=== PATIENT | female | born 1945 | race Caucasian/White ===

== ENCOUNTER → 2017-07-17 | Outpatient (CLI) | payer MEDICARE, OTHER | END | disposition home or self-care (01) | LOC: MAMMO 07:43 | PROVIDERS: ATTEND Family Medicine | DX: Z12.31 Encounter for screening mammogram for malignant neoplasm of breast (principal) | CPT/HCPCS: 77063; G0202; 77067 ==

== ENCOUNTER 2018-09-24 08:32 | Emergency (ER) | payer MEDICARE, OTHER ==
[2018-09-24] MEDS ORDERED: HYDR-971 PO ×3 (09:45→10:10)
--- NOTE | 2018-09-24 09:45 | PHYS DOC ---
Adult General Chief Complaint Chief Complaint: FOOT INJURY PAIN [facility] HPI Patient is a 73 year old female who presents with complaining of right foot pain and injury. Patient states she dropped a large glass table on her right foot one week ago and since then has had pain and edema of her foot that does not getting better patient states the pain getting worse with bearing weight and denies focal neuro deficit and other injuries. Review of Systems Review of Systems Constitutional: Denies fever or chills [] Eyes: Denies change in visual acuity, redness, or eye pain [] HENT: Denies nasal congestion or sore throat [] Respiratory: Denies cough or shortness of breath [] Cardiovascular: No additional information not addressed in HPI [] GI: Denies abdominal pain, nausea, vomiting, bloody stools or diarrhea [] : Denies dysuria or hematuria [] Musculoskeletal: Denies back pain, reports joint pain [] Integument: Denies rash or skin lesions [] Neurologic: Denies headache, focal weakness or sensory changes [] Endocrine: Denies polyuria or polydipsia [] All other systems were reviewed and found to be within normal limits, except as documented in this note. Physical Exam Physical Exam Constitutional: Well developed, well nourished, mild distress, non-toxic appearance. [] HENT: Normocephalic, atraumatic Eyes: PERRLA, EOMI, conjunctiva normal, no discharge. [] Neck: Normal range of motion, no tenderness, supple, no stridor. [] Cardiovascular:Heart rate regular rhythm, no murmur [] Lungs & Thorax: Bilateral breath sounds clear to auscultation [ Skin: Warm, dry, no erythema, no rash. [] Back: No tenderness, no CVA tenderness. [] Extremities: Right foot with moderate edema and ecchymosis and tenderness in face metatarsal area and painful range of motion without neurovascular deficit Neurologic: Alert and oriented X 3, normal motor function, normal sensory function, no focal deficits noted. [] Psychologic: Affect normal, judgement normal, mood normal. [] EKG EKG [] Radiology/Procedures Radiology/Procedures [address] [address] IMAGING REPORT Signed PATIENT: BRAD ZHENG ACCOUNT: [id number] : 1945 LOCATION: ER AGE: 73 SEX: F EXAM STATUS: REG ER ORD. PHYSICIAN: DORON MCLEAN MD REASON: injury PROCEDURE: FOOT RIGHT 3V FOOT RIGHT 3V Clinical Indication: INJURY, PAIN Comparison: None. Findings: There is a single oblique screw fusing the subtalar joint. There is demineralization. No dorsal soft tissue swelling of the foot is appreciated. There is severe lateral angulation and proximal subluxation of the fifth toe middle and distal phalanx in relation to the proximal phalanx. Finding is age-indeterminate but may be chronic. There is acute traumatic nondisplaced fracture of the midshaft of the first metatarsal. Fracture line is mostly transverse. There is tarsal metatarsal joint space narrowing. IMPRESSION: Acute traumatic nondisplaced fracture of the mid diaphysis of the first metatarsal. Electronically signed by: Leroy Sanchez MD (09/24/2018 9:54 AM) [id number] DICTATED AND SIGNED BY: LEROY SANCHEZ MD DATE: 09/24/18 0950 CC: DORON MCLEAN MD; THOMAS ARELLANO MD ~ Course & Med Decision Making Course & Med Decision Making Pertinent Imaging studies reviewed. (See chart for details) Evaluation of patient in ER showed 73-year-old male patient with injury to right foot one week ago and moderate edema and tenderness and painful range of motion. X-ray showed fracture of first metatarsal. Short leg OCL splint was applied by [employer] with good cap refill and examination after placement of the splint. Patient has a walker at home and instructed to use her walker and follow -up with call orthopedic physician. Josue Disclaimer Josue Disclaimer This electronic medical record was generated, in whole or in part, using a voice recognition dictation system. Departure Departure: Impression: Primary Impression: Fracture of metatarsal of right foot, closed Disposition: 01 HOME, SELF-CARE (at 0 955) Condition: STABLE Referrals: THOMAS ARELLANO MD (PCP) Patient Instructions: Metatarsal Fracture, Undisplaced Additional Instructions: Follow-up with information [facility] orthopedic physician call [phone] to make an appointment Use your home walker Scripts Hydrocodone Bit/Acetaminophen (NORCO 5-325 TABLET) 1 Each Tablet 1 TAB PO PRN Q6HRS PRN for PAIN, #20 TAB 0 Refills Prov: DORON MCLEAN MD 09/24/18 DORON MCLEAN MD Sep 24, 2018 09:45
--- NOTE | 2018-09-24 09:56 | RAD ---
FOOT RIGHT 3V Clinical Indication: INJURY, PAIN Comparison: None. Findings: There is a single oblique screw fusing the subtalar joint. There is demineralization. No dorsal soft tissue swelling of the foot is appreciated. There is severe lateral angulation and proximal subluxation of the fifth toe middle and distal phalanx in relation to the proximal phalanx. Finding is age-indeterminate but may be chronic. There is acute traumatic nondisplaced fracture of the midshaft of the first metatarsal. Fracture line is mostly transverse. There is tarsal metatarsal joint space narrowing. IMPRESSION: Acute traumatic nondisplaced fracture of the mid diaphysis of the first metatarsal. Electronically signed by: Leroy Sanchez MD (09/24/2018 9:54 AM) [id number]
[2018-09-24 10:16] VITALS: BP 140/72
== END 2018-09-24 10:15 | disposition home or self-care (01) ==
LOC: ER 08:32
DX: S92.314A Nondisplaced fracture of first metatarsal bone, right foot, initial encounter for closed fracture (principal); W20.8XXA Other cause of strike by thrown, projected or falling object, initial encounter; Y93.89 Activity, other specified; Y92.89 Other specified places as the place of occurrence of the external cause; Y99.8 Other external cause status
CPT/HCPCS: 29515; 73630; 99284

== ENCOUNTER 2018-11-30 08:04 | Emergency (ER) | payer MEDICARE, OTHER ==
[~2018-11-30 08:04] MED LIST: HYDR-3165 PO
[2018-11-30] MEDS ORDERED: ONDANSETRON PF 4 MG/2 ML VIAL. IV ONE (08:45)
[2018-11-30] MEDS ORDERED: KETOROLAC 30 MG/ML VIAL. IV ONE (08:45)
[2018-11-30 08:48] VITALS: BP 122/78
[2018-11-30] MEDS ORDERED: IV NORMAL SALINE 1,000ML 1,000 ML IV ONE (09:00)
[2018-11-30 09:05] LABS: BASO % 0 % (0-3); EOS % 0 % (0-3); HEMATOCRIT 40.4 % (36.0-47.0); HEMOGLOBIN 13.4 g/dL (12.0-15.5); LYMPH # 0.6 x10^3/uL (1.0-4.8); LYMPH % 15 % (24-48); MEAN CORPUSCULAR HEMOGLOBIN 30 pg (25-35); MEAN CORPUSCULAR HGB CONC 33 g/dL (31-37); MEAN CORPUSCULAR VOLUME 89 fL (79-100); MONO # 0.4 x10^3/uL (0.0-1.1); MONO % 10 % (0-9); NEUT % 74 % (31-73); PLATELET COUNT 213 x10^3/uL (140-400); RED BLOOD COUNT 4.54 x10^6/uL (3.50-5.40); RED CELL DISTRIBUTION WIDTH 13.9 % (11.5-14.5); WHITE BLOOD COUNT 4.1 x10^3/uL (4.0-11.0)
[2018-11-30 09:11] LABS: CALCIUM 8.5 mg/dL (8.5-10.1); CREATININE 0.6 mg/dL (0.6-1.0); GFR 97.7; POTASSIUM 3.7 mmol/L (3.5-5.1)
--- NOTE | 2018-11-30 09:13 | RAD ---
CT HEAD WO CONTRAST Indication: HEADACHE/DIZZINESS X 4 DAYS Exposure: One or more of the following individualized dose reduction techniques were utilized for this examination: 1. Automated exposure control 2. Adjustment of the mA and/or kV according to patient size 3. Use of iterative reconstruction technique. Comparison: None are available. Contrast: None FINDINGS: Posterior fossa is unremarkable. No evidence of acute intracranial hemorrhage or abnormal extra-axial fluid collection. No evidence of mass effect or midline shift. Ventricles are symmetric in size and configuration. Arnold-white matter distinction is intact. Visualized orbits are unremarkable. Visualized paranasal sinuses and mastoids are clear. No acute calvarial abnormality. Impression:Negative for acute intracranial hemorrhage or mass effect. Electronically signed by: Chano Menezes MD (11/30/2018 9:09 AM) [facility]
--- NOTE | 2018-11-30 09:27 | PHYS DOC ---
Past History Past Medical History: Migraines Past Surgical History: Appendectomy, Cholecystectomy, Hysterectomy Smoking: Non-smoker Alcohol Use: None Drug Use: None Adult General Chief Complaint Chief Complaint: HEADACHE HPI HPI Patient is a 73 year old female with history of migraine headache who presents with complaining of migraine headache. Patient complaining of frontal headache as a sharp and throbbing pain for the last 5 days associated with nausea and photophobia that did not get better with Imitrex 6. Patient denies fever, focal neuro deficit, vomiting, chest pain, shortness of breath. Patient states the pain is like her usual migraine headache but did not get better with Imitrex. Patient states she had nasal congestion and bloody drainage from her nose with green mucus this morning. Review of Systems Review of Systems Constitutional: Denies fever or chills [] Eyes: Denies change in visual acuity, redness, or eye pain [] HENT: Denies nasal congestion or sore throat [] Respiratory: Denies cough or shortness of breath [] Cardiovascular: No additional information not addressed in HPI [] GI: Denies abdominal pain, vomiting, bloody stools or diarrhea, reports nausea [ ] : Denies dysuria or hematuria [] Musculoskeletal: Denies back pain or joint pain [] Integument: Denies rash or skin lesions [] Neurologic: Reports headache, denies focal weakness or sensory changes [] Endocrine: Denies polyuria or polydipsia [] All other systems were reviewed and found to be within normal limits, except as documented in this note. Current Medications Current Medications Current Medications Medications (Trade) Dose Ordered Sig/Kristina Start Time Stop Time Status Last Admin Dose Admin Ketorolac Tromethamine (Toradol 30mg Vial) 30 mg 1X ONCE 11/30/18 08:45 11/30/18 09:10 DC 11/30/18 09:07 30 MG Ondansetron HCl (Zofran) 4 mg 1X ONCE 11/30/18 08:45 11/30/18 09:10 DC 11/30/18 09:07 4 MG Sodium Chloride 1,000 ml @ 1,000 mls/hr 1X ONCE 11/30/18 09:00 11/30/18 09:59 11/30/18 09:00 1,000 MLS/HR Allergies Allergies Allergies Coded Allergies Type Severity Reaction Last Updated Verified No Known Drug Allergies 11/30/18 No Physical Exam Physical Exam Constitutional: Well developed, well nourished, mild distress, non-toxic appearance. [] HENT: Normocephalic, atraumatic, bilateral external ears normal, oropharynx moist, no oral exudates, nasal congestion. [] Eyes: PERRLA, EOMI, conjunctiva normal, no discharge. [] Neck: Normal range of motion, no tenderness, supple, no stridor. [] Cardiovascular:Heart rate regular rhythm, no murmur [] Lungs & Thorax: Bilateral breath sounds clear to auscultation [] Abdomen: Bowel sounds normal, soft, no tenderness, no masses, no pulsatile masses. [] Skin: Warm, dry, no erythema, no rash. [] Back: No tenderness, no CVA tenderness. [] Extremities: No tenderness, no cyanosis, no clubbing, ROM intact, no edema. [] Neurologic: Alert and oriented X 3, normal motor function, normal sensory function, no focal deficits noted. [] Psychologic: Affect normal, judgement normal, mood normal. [] Current Patient Data Vital Signs Vital Signs Date Time Temp Pulse Resp B/P (MAP) Pulse Ox O2 Delivery O2 Flow Rate FiO2 11/30/18 08:48 98.6 90 18 95 Room Air Lab Results Laboratory Tests Test 11/30/18 08:39 White Blood Count 4.1 x10^3/uL (4.0-11.0) Red Blood Count 4.54 x10^6/uL (3.50-5.40) Hemoglobin 13.4 g/dL (12.0-15.5) Hematocrit 40.4 % (36.0-47.0) Mean Corpuscular Volume 89 fL (79-100) Mean Corpuscular Hemoglobin 30 pg (25-35) Mean Corpuscular Hemoglobin Concent 33 g/dL (31-37) Red Cell Distribution Width 13.9 % (11.5-14.5) Platelet Count 213 x10^3/uL (140-400) Neutrophils (%) (Auto) 74 % (31-73) H Lymphocytes (%) (Auto) 15 % (24-48) L Monocytes (%) (Auto) 10 % (0-9) H Eosinophils (%) (Auto) 0 % (0-3) Basophils (%) (Auto) 0 % (0-3) Neutrophils # (Auto) 3.0 x10^3uL (1.8-7.7) Lymphocytes # (Auto) 0.6 x10^3/uL (1.0-4.8) L Monocytes # (Auto) 0.4 x10^3/uL (0.0-1.1) Eosinophils # (Auto) 0.0 x10^3/uL (0.0-0.7) Basophils # (Auto) 0.0 x10^3/uL (0.0-0.2) Prothrombin Time 9.8 SEC (9.4-11.4) Prothrombin Time INR 1.0 (0.9-1.1) Sodium Level 142 mmol/L (136-145) Potassium Level 3.7 mmol/L (3.5-5.1) Chloride Level 104 mmol/L (98-107) Carbon Dioxide Level 28 mmol/L (21-32) Anion Gap 10 (6-14) Blood Urea Nitrogen 13 mg/dL (7-20) Creatinine 0.6 mg/dL (0.6-1.0) Estimated GFR (Cockcroft-Gault) 97.7 Glucose Level 112 mg/dL (70-99) H Calcium Level 8.5 mg/dL (8.5-10.1) EKG EKG [] Radiology/Procedures Radiology/[place] [address] IMAGING REPORT Signed PATIENT: BRAD ZHENG ACCOUNT: [id number] : 1945 LOCATION: ER AGE: 73 SEX: F EXAM STATUS: REG ER ORD. PHYSICIAN: DORON MCLEAN MD REASON: headache PROCEDURE: CT HEAD WO CONTRAST CT HEAD WO CONTRAST Indication: HEADACHE/DIZZINESS X 4 DAYS Exposure: One or more of the following individualized dose reduction techniques were utilized for this examination: 1. Automated exposure control 2. Adjustment of the mA and/or kV according to patient size 3. Use of iterative reconstruction technique. Comparison: None are available. Contrast: None FINDINGS: Posterior fossa is unremarkable. No evidence of acute intracranial hemorrhage or abnormal extra-axial fluid collection. No evidence of mass effect or midline shift. Ventricles are symmetric in size and configuration. Arnold-white matter distinction is intact. Visualized orbits are unremarkable. Visualized paranasal sinuses and mastoids are clear. No acute calvarial abnormality. Impression:Negative for acute intracranial hemorrhage or mass effect. Electronically signed by: Chano Menezes MD (11/30/2018 9:09 AM) [facility] DICTATED AND SIGNED BY: CHANO MENEZES MD DATE: 11/30/18 0904 CC: DORON MCLEAN MD; THOMAS ARELLANO MD ~ Course & Med Decision Making Course & Med Decision Making Pertinent Labs and Imaging studies reviewed. (See chart for details) Evaluation of patient in ER showed 73-year-old female patient with history of migraine headaches presents With complaining of multiple and headache for several days that did not get better with Imitrex like her usual episode of migraine headache. Patient had unremarkable physical exam and labs and CT of head. Patient felt better after treatment with fentanyl. Plan discharge patient home with diagnosis of migraine headache and prescription of Fiorinal. Dragon Disclaimer Dragon Disclaimer This electronic medical record was generated, in whole or in part, using a voice recognition dictation system. Departure Departure: Impression: Primary Impression: Migraine headache Additional Impressions: Nausea Photophobia Asymptomatic microscopic hematuria Disposition: HOME, SELF-CARE (at 1119) Condition: IMPROVED Referrals: THOMAS ARELLANO MD (PCP) Patient Instructions: Migraine Headache Additional Instructions: Drink plenty of liquids Follow-up with your primary care physician in 3-5 days Return to ER if not getting better Scripts Butalbital/Aspirin/Caffeine (FIORINAL 50-325-40 MG CAPSULE) 1 Each Capsule 1 EACH PO QID PRN for HEADACHE, #20 CAP Prov: DORON MCLEAN MD 11/30/18 Ondansetron Hcl (ZOFRAN) 4 Mg Tablet 1 TAB PO Q6HRS for nausea and vomiting, #12 TAB Prov: DORON MCLEAN MD 11/30/18 Problem Qualifiers DORON MCLEAN MD Nov 30, 2018 09:27
[2018-11-30 11:12] LABS: BILIRUBIN,URINE NEG (NEG); CLARITY,URINE TURBID; COLOR,URINE YELLOW; GLUCOSE,URINE NEG (NEG); NITRITE,URINE POS (NEG); UROBILINOGEN,URINE 0.2 mg/dL (0.2 mg/dL)
[2018-11-30 11:13] LABS: AMORPHOUS SEDIMENT,UR PRESENT /HPF; BACTERIA,URINE MOD /HPF (0-FEW); SQUAMOUS EPITHELIAL CELL,UR OCC /LPF
[2018-11-30] MEDS ORDERED: ONDA4TAB7 PO (11:22)
[2018-11-30] MEDS ORDERED: BUTA1CAP31 PO (11:22)
== END 2018-11-30 11:00 | disposition home or self-care (01) ==
LOC: ER 08:04
DX: G43.909 Migraine, unspecified, not intractable, without status migrainosus (principal); R31.21 Asymptomatic microscopic hematuria; R42 Dizziness and giddiness
CPT/HCPCS: 36415; 70450; 80048; 81001; 85025; 85610; 87086; 96361; 96374; 96375; 99284; J1885; J2405; J3010; 87186; J7030

== ENCOUNTER → 2020-09-02 | Outpatient (CLI) | payer MEDICARE, OTHER ==
[~2020-09-02] MED LIST changes: +BUTA1CAP31 PO; +IOHEXOL 240 MG/ML 50ML VIAL. ONE; +IOHEXOL 300 MG/ML 75 ML VIAL. IV ONE; +ONDA4TAB7 PO
--- NOTE | 2020-09-02 10:29 | RAD ---
CT ABDOMEN W/CONTRAST History: Reason: HERNIA / Spl. Instructions: DRINKING AT 850-920 / History: Technique: After the administration of intravenous contrast, CT imaging was performed of the abdomen and pelvis. Multiplanar images are reviewed. Exposure: One or more of the following individualized dose reduction techniques were utilized for this examination: 1. Automated exposure control 2. Adjustment of the mA and/or kV according to patient size 3. Use of iterative reconstruction technique. Comparison: May 04, 2015 Findings: Lower chest: Partially imaged right breast implant. No consolidation or pleural effusion. Linear right middle lobe atelectasis. Abdomen and pelvis: The liver, spleen, adrenal glands, pancreas and gallbladder are unremarkable. No biliary ductal dilatation. Patent portal veins. Tiny right posterior renal hypodensity, likely cyst although too small to further characterize, unchanged. No hydronephrosis. No pathologic lymphadenopathy. Imaged bowel is nonobstructed. Oral contrast opacifies to the colon. Mild atheromatous plaque within the nonaneurysmal abdominal aorta. Mild plaque within the left renal artery origin. Small fat-containing umbilical hernia measures 1.2 x 0.9 cm with fascial defect measuring 0.5 cm, similar compared to 2015. Bones: Chronic L1 compression fracture status post kyphoplasty. Impression: 1. Small fat-containing umbilical hernia, unchanged. Electronically signed by: Robert Bonilla DO (09/02/2020 10:26 AM) [id number]
== END ==
LOC: CT 08:37
PROVIDERS: ATTEND Surgery
DX: K43.9 Ventral hernia without obstruction or gangrene (principal); J98.11 Atelectasis; I71.4 Abdominal aortic aneurysm, without rupture; I70.1 Atherosclerosis of renal artery; K42.9 Umbilical hernia without obstruction or gangrene
CPT/HCPCS: 74160; Q9967

== ENCOUNTER 2022-01-10 12:13 | Emergency (ER) | payer MEDICARE, OTHER ==
[~2022-01-10] VITALS: Ht 165.1 cm; Wt 56.8 kg
[~2022-01-10 12:13] MED LIST changes: -IOHEXOL 240 MG/ML 50ML VIAL. ONE; -IOHEXOL 300 MG/ML 75 ML VIAL. IV ONE
[2022-01-10] MEDS ORDERED: DIPHTH,PERTUSS(ACELL),TET TOX 0.5 ML DISP.SYRIN. VAX IM ONE (13:45)
[2022-01-10] MEDS ORDERED: traMADol 50 MG TABLET PO ONE (13:45)
--- NOTE | 2022-01-10 14:12 | RAD ---
EXAM: Left wrist, 3 views; left hand, 3 views; right knee, 4 views. HISTORY: Pain. Fall. COMPARISON: None. FINDINGS: Left hand and wrist: 3 views of the left hand and wrist are obtained. There is a chronic healed fract ure deformity of the distal radial metaphysis with dorsal inclination of the distal radial articular surface. There is a chronic nonunited left ulnar styloid fracture. There is mild first carpometacarpa l joint spurring. There is bone demineralization. There may be a chronic triquetral fracture. There i s an acute appearing fracture at the base of the fifth proximal phalanx. Right knee: 4 views of the right knee are obtained and 2 views of the left knee are obtained. There i s moderate lateral compartment joint space narrowing and spurring. There is mild medial and patellofe moral compartment spurring. There is medial and lateral compartment chondrocalcinosis. There is no si gnificant joint effusion. There is a left knee arthroplasty and internal fixation of the left femur, partially included on the [id number]. IMPRESSION: 1. Acute appearing fracture at the base of the left fifth proximal phalanx. 2. Chronic healed distal left radial metaphyseal fracture and chronic nonunited left ulnar styloid fr acture. 3. Moderate lateral compartment predominant osteoarthritis of the right knee. 4. Left knee arthroplasty and internal fixation of the left femur. 5. Mild left first carpometacarpal joint osteoarthritis. 6. Bone demineralization. Electronically signed by: Sonal Cook MD (01/10/2022 2:09 PM) [id number]
--- NOTE | 2022-01-10 14:16 | RAD ---
EXAM: Head CT without contrast; maxillofacial bone CT without contrast; cervical spine CT without con trast. HISTORY: Fall. Loss of consciousness. Headache. TECHNIQUE: Computed tomographic images of the head, maxillofacial bones and cervical spine were obtai daria without contrast. *One or more of the following individualized dose reduction techniques were utilized for this examina tion: 1. Automated exposure control. 2. Adjustment of the mA and/or kV according to patient size. 3. Use of iterative reconstruction technique. COMPARISON: 11/30/2018. FINDINGS: Head: There is no acute hemorrhage. There is no mass effect or midline shift. There is no hydrocephal us. There is mild decreased attenuation within the cerebral white matter, likely due to chronic small vessel disease. There is mild cerebral volume loss. There is an inferior left frontal scalp and angelina orbital soft tissue hematoma. There is evidence of lens surgery. The mastoid air cells are clear. The re is no calvarial fracture. The paranasal sinuses are clear. There is leftward nasal septal deviatio n. Cervical spine: There is no significant listhesis. There is multilevel endplate remodeling and anteri or osteophytosis. There is disc space calcification. There is calcified pannus surrounding the dens. There is multilevel facet arthropathy. There is no acute fracture. There is no suspicious osseous les ion. There is a benign osseous excrescence along the left aspect of the skull base along the anterior foramen magnum, possibly due to an ossified meningioma of no clinical significance. The combination of degenerative changes results in mild right and moderate left foraminal stenosis at C2-C3, mild bilateral foraminal stenosis at C3-C4, and moderate bilateral foraminal stenosis at C4-C 5. There is a heterogeneous thyroid containing a small left thyroid cyst. There is biapical pleural p arenchymal scarring. IMPRESSION: 1. No acute intracranial finding. 2. Small inferior left frontal scalp and left periorbital soft tissue hematoma. 3. Bilateral cerebral white matter changes, likely due to chronic small vessel disease. 4. Multilevel degenerative change involving the cervical spine, resulting in stenosis at the aforemen tioned levels. Electronically signed by: Sonal Cook MD (01/10/2022 2:13 PM) [id number]
--- NOTE | 2022-01-10 14:31 | PHYS DOC ---
Past History Past Medical History: Migraines Additional Past Medical Histor: bowel blockage (PENNY HERNANDEZ APRN) Past Surgical History: Hysterectomy, Other Additional Past Surgical Histo: L knee, bilat wrist, bowel surgery (PENNY HERNANDEZ APRN) Smoking: Non-smoker Alcohol Use: Occasionally Drug Use: None (PENNY HERNANDEZ APRN) General Adult EDM: Chief Complaint: MECHANICAL FALL HPI: HPI: Patient is a 76-year-old female that presents today after a fall. Patient state s that she was walking on the sidewalk and did not notice that the sidewalk was uneven and she tripped and fell forward hitting her face her left hand and her bilateral knees on the concrete. Patient is complaining of facial pain, left fifth finger hand pain, bilateral knee pain. Patient states that she is not sure if she had a loss of consciousness at all because she cannot remember the entire event but her says that she was awake the entire time who witnessed the fall. Patient is unsure when her last tetanus shot was. (PENNY HERNANDEZ APRN) Review of Systems: Review of Systems: Constitutional: Denies fever or chills Eyes: Denies change in visual acuity HENT: Facial, head and neck pain Respiratory: Denies cough or shortness of breath Cardiovascular: Denies chest pain or edema GI: Denies abdominal pain, nausea, vomiting, bloody stools or diarrhea : Denies dysuria Musculoskeletal: Left hand pain, bilateral knee pain denies back pain or joint pain Integument: Denies rash Neurologic: Denies headache, focal weakness or sensory changes Endocrine: Denies polyuria or polydipsia Lymphatic: Denies swollen glands Psychiatric: Denies depression or anxiety (PENNY HERNANDEZ APRN) Current Medications: Current Meds: Current Medications Medications (Trade) Dose Ordered Sig/Kristina Start Time Stop Time Status Last Admin Dose Admin Diphtheria/ Tetanus/Acell Pertussis (Boostrix) 0.5 ml ONCE ONCE 01/10/22 13:45 01/10/22 13:46 DC Tramadol HCl (Ultram) 50 mg 1X ONCE 01/10/22 13:45 01/10/22 13:46 DC (PENNY HERNANDEZ APRN) Allergies: Allergies: Allergies Coded Allergies Type Severity Reaction Last Updated Verified No Known Drug Allergies 11/30/18 No (PENNY HERNANDEZ ASSEMBLER ENGINE) Physical Exam: PE: Constitutional: Well developed, well nourished, no acute distress, non-toxic appearance. [] HENT: Inspection and palpation of the head and face reveals contusions and abrasions to the forehead area the nasal area and the lower lip mostly on the left side, patient does not have any crepitus or step-offs noted with palpation, no malocclusion noted with her teeth no loose teeth or any foreign objects in her mouth, Eyes: PERRLA, EOMI, conjunctiva normal, no discharge. [] Neck: Normal range of motion, tenderness, supple, no stridor. [] Cardiovascular:Heart rate regular rhythm, no murmur [] Lungs & Thorax: Bilateral breath sounds clear to auscultation [] Abdomen: Bowel sounds normal, soft, no tenderness, no masses, no pulsatile masses. [] Skin: Abrasion noted on the lower lip area mostly on the left side, no active bleeding noted, abrasions bilateral knees, avulsion type injury to the left hand fifth metacarpal area warm Back: No tenderness, no CVA tenderness. [] Extremities: Bilateral knee abrasions noted well-healed scar on the left knee due to a total knee replacement, swelling noted in the right knee where she hit and where the abrasion is noted, patient has good range of motion, pedal pulses are 2+ bilateral laterally, sensory intact distal to the injuries, left hand avulsion noted on the lateral aspect near the fifth metacarpal on the left hand, no active bleeding noted, patient is unable to straighten out the fifth finger but is able to bend it, she does have point tenderness in the metacarpal area, radial pulse is 2+ sensory is intact distal to the injury cap refills less than 2 seconds distal to the injury. Neurologic: Alert and oriented X 3, normal motor function, normal sensory function, no focal deficits noted. [] Psychologic: Affect normal, judgement normal, mood normal. [] (PENNY HERNANDEZ ASSEMBLER ENGINE) Current Patient Data: Vital Signs: Vital Signs Date Time Temp Pulse Resp B/P (MAP) Pulse Ox O2 Delivery O2 Flow Rate FiO2 01/10/22 14:36 75 16 152/88 (109) 97 Room Air 01/10/22 13:33 80 16 130/67 (88) 99 Room Air 01/10/22 12:39 98.2 82 16 137/87 (104) 98 Room Air Vital Signs Date Time Temp Pulse Resp B/P (MAP) Pulse Ox O2 Delivery O2 Flow Rate FiO2 01/10/22 12:39 98.2 82 16 137/87 (104) 98 Room Air (PENNY HERNANDEZ APRN) EKG: EKG: [] (PENNY HERNANDEZ APRN) Radiology/Procedures: Radiology/Procedures: REASON: fall and left hand and wrist pain PROCEDURE: WRIST 3V LEFT EXAM: Left wrist, 3 views; left hand, 3 views; right knee, 4 views. HISTORY: Pain. Fall. COMPARISON: None. FINDINGS: Left hand and wrist: 3 views of the left hand and wrist are obtained. There is a chronic healed fracture deformity of the distal radial metaphysis with dorsal inclination of the distal radial articular surface. There is a chronic nonunited left ulnar styloid fracture. There is mild first carpometacarpal joint spurring. There is bone demineralization. There may be a chronic triquetral fracture. There is an acute appearing fracture at the base of the fifth proximal phalanx. Right knee: 4 views of the right knee are obtained and 2 views of the left knee are obtained. There is moderate lateral compartment joint space narrowing and spurring. There is mild medial and patellofemoral compartment spurring. There is medial and lateral compartment chondrocalcinosis. There is no significant joint effusion. There is a left knee arthroplasty and internal fixation of the left femur, partially included on the [id number]. IMPRESSION: 1. Acute appearing fracture at the base of the left fifth proximal phalanx. 2. Chronic healed distal left radial metaphyseal fracture and chronic nonunited left ulnar styloid fracture. 3. Moderate lateral compartment predominant osteoarthritis of the right knee. 4. Left knee arthroplasty and internal fixation of the left femur. 5. Mild left first carpometacarpal joint osteoarthritis. 6. Bone demineralization. Electronically signed by: Sonal Cook MD (01/10/2022 2:09 PM) [id number][] REASON: fall and hit head, possible LOC PROCEDURE: CT MAXILLOFACIAL WO CONTRAST EXAM: Head CT without contrast; maxillofacial bone CT without contrast; cervical spine CT without contrast. HISTORY: Fall. Loss of consciousness. Headache. TECHNIQUE: Computed tomographic images of the head, maxillofacial bones and cervical spine were obtained without contrast. *One or more of the following individualized dose reduction techniques were utilized for this examination: 1. Automated exposure control. 2. Adjustment of the mA and/or kV according to patient size. 3. Use of iterative reconstruction technique. COMPARISON: 11/30/2018. FINDINGS: Head: There is no acute hemorrhage. There is no mass effect or midline shift. There is no hydrocephalus. There is mild decreased attenuation within the cerebral white matter, likely due to chronic small vessel disease. There is mild cerebral volume loss. There is an inferior left frontal scalp and periorbital soft tissue hematoma. There is evidence of lens surgery. The mastoid air cells are clear. There is no calvarial fracture. The paranasal sinuses are clear. There is leftward nasal septal deviation. Cervical spine: There is no significant listhesis. There is multilevel endplate remodeling and anterior osteophytosis. There is disc space calcification. There is calcified pannus surrounding the dens. There is multilevel facet arthropathy. There is no acute fracture. There is no suspicious osseous lesion. There is a benign osseous excrescence along the left aspect of the skull base along the anterior foramen magnum, possibly due to an ossified meningioma of no clinical significance. The combination of degenerative changes results in mild right and moderate left foraminal stenosis at C2-C3, mild bilateral foraminal stenosis at C3-C4, and moderate bilateral foraminal stenosis at C4-C5. There is a heterogeneous thyroid containing a small left thyroid cyst. There is biapical pleural parenchymal scarring. IMPRESSION: 1. No acute intracranial finding. 2. Small inferior left frontal scalp and left periorbital soft tissue hematoma. 3. Bilateral cerebral white matter changes, likely due to chronic small vessel disease. 4. Multilevel degenerative change involving the cervical spine, resulting in stenosis at the aforementioned levels. Electronically signed by: Sonal Cook MD (01/10/2022 2:13 PM) [id number] (PENNY HERNANDEZ APRN) Heart Score: C/O Chest Pain: N/A Risk Factors: Risk Factors: DM, Current or recent (<one month) smoker, HTN, HLP, family history of CAD, obesity. Risk Scores: Score 0 - 3: 2.5% MACE over next 6 weeks - Discharge Home Score 4 - 6: 20.3% MACE over next 6 weeks - Admit for Clinical Observation Score 7 - 10: 72.7% MACE over next 6 weeks - Early Invasive Strategies (PENNY HERNANDEZ APRN) Course & Med Decision Making: Course & Med Decision Making Pertinent Labs and Imaging studies reviewed. (See chart for details) 1440 reviewed radiological results with patient informing her that she has 5th finger fracture on the left hand, but all her other areas of concern were negative for any acute fracture. Patient will be placed in a foam aluminum's splint securing the fifth finger, she will refer to the [facility] orthopedic group for which she is already seeing for her foot and ankle issues for further management of her fifth finger fracture. Patient will also be given a prescription for Ultram for pain, patient will be given some wound care instructions to manage the abrasions on her body. Patient verbalized understanding of all the discharge instruction and is agreeable to the plan of care. (PENNY HERNANDEZ APRN) Dragon Disclaimer: Dragon Disclaimer: This electronic medical record was generated, in whole or in part, using a voice recognition dictation system. (PENNY HERNANDEZ APRN) Attending Co-Sign The patient was seen and interviewed as well as examined at the bedside. The chart was reviewed. The case was discussed. Agree with the plan of care. (THUAN BERNABE DO) Departure Departure: Impression: Primary Impression: Fall Qualified Codes: W19.XXXA - Unspecified fall, initial encounter Additional Impressions: Finger fracture, left Qualified Codes: S62.647A - Nondisplaced fracture of proximal phalanx of left little finger, initial encounter for closed fracture Abrasions and calluses on knuckles due to self-induced vomiting Facial contusion Qualified Codes: S00.83XA - Contusion of other part of head, initial encounter Disposition: 01 HOME / SELF CARE / HOMELESS Condition: STABLE Referrals: THOMAS ARELLANO MD (PCP) Patient Instructions: Abrasion, [id number], Facial or Scalp Contusion, Finger Fracture Additional Instructions: Foam aluminum splint for the fifth finger fracture on your left hand Follow-up with your orthopedic doctor at the [facility] for further management of that finger fracture Ultram take 1 to 2 tablets every 6 hours as needed for pain, use with caution may cause drowsiness and constipation [id number] Tylenol and/or ibuprofen as needed for pain as well Return to the emergency department for any signs and symptoms of infection of your abrasions, any increased pain in your hand, any change in mental status. Scripts Tramadol Hcl (TRAMADOL HCL) 50 Mg Tablet 50 MG PO PRN Q6HRS PRN for PAIN, #30 TAB Prov: PENNY HENRANDEZ APRN 01/10/22 PENNY HERNANDEZ APRN Jan 10, 2022 14:31 THUAN BERNABE DO Jan 12, 2022 08:24
[2022-01-10 14:36] VITALS: BP 152/88
[2022-01-10] MEDS ORDERED: TRAM50TA PO (15:03)
[2022-01-10] MEDS ORDERED: BACITRACIN ZINC TOPICAL OINT PACKET. TP ONE (15:15)
== END 2022-01-10 15:39 | disposition home or self-care (01) ==
LOC: ER 12:13
DX: S62.617A Displaced fracture of proximal phalanx of left little finger, initial encounter for closed fracture (principal); S00.83XA Contusion of other part of head, initial encounter; S00.511A Abrasion of lip, initial encounter; S80.212A Abrasion, left knee, initial encounter; S80.211A Abrasion, right knee, initial encounter; G43.909 Migraine, unspecified, not intractable, without status migrainosus; W01.0XXA Fall on same level from slipping, tripping and stumbling without subsequent striking against object, initial encounter; Y93.01 Activity, walking, marching and hiking; Y92.89 Other specified places as the place of occurrence of the external cause; Y99.8 Other external cause status
CPT/HCPCS: 29130; 70450; 70486; 72125; 73110; 73130; 90471; 90715; 99284; 73562-50

== ENCOUNTER 2022-03-19 08:58 | Emergency (ER) | payer MEDICARE, OTHER ==
[~2022-03-19] VITALS: Ht 165.1 cm; Wt 56.8 kg
[~2022-03-19 08:58] MED LIST changes: +TRAM50TA PO
--- NOTE | 2022-03-19 09:28 | PHYS DOC ---
Past History Past Medical History: Migraines Additional Past Medical Histor: bowel blockage Past Surgical History: Hysterectomy, Other Additional Past Surgical Histo: L knee, bilat wrist, bowel surgery Smoking: Non-smoker Alcohol Use: Occasionally Drug Use: None General Adult EDM: Chief Complaint: LOWER EXT PAIN HPI: HPI: Patient is a 77-year-old female who complains of left hip and lower back pain. Patient states that she fell yesterday in the kitchen. Lost her balance. Not hit her head, did not have syncopal episode. She is not been able to bear weight secondary to left hip pain since the fall. It sounds like she has had left hip replacement already performed. Additionally patient has lower back pain. She has had compression fractures previously with kyphoplasty performed. She has not had any weakness or numbness distally nor she had any incontinence. No neck pain, chest pain, shortness of breath abdominal pain or upper extremity pain. Review of Systems: Review of Systems: Constitutional: Denies fever Eyes: Denies change in visual acuity or eye pain HENT: Denies sore throat Respiratory: Denies shortness of breath Cardiovascular: Denies chest pain GI: Denies abd pain : Denies dysuria Musculoskeletal: Reports back pain, lower. Left hip pain. Integument: Denies rash or skin lesions Neurologic: Denies headache, focal weakness or sensory changes All other systems were reviewed and found to be within normal limits, except as documented in this note. Allergies: Allergies: Allergies Coded Allergies Type Severity Reaction Last Updated Verified No Known Drug Allergies 11/30/18 No Physical Exam: PE: Constitutional: Well developed, well nourished, no acute distress, non-toxic appearance. HENT: Normocephalic, atraumatic, bilateral external ears normal, mucosa moist, nose normal. Eyes: EOMI, conjunctiva normal, no discharge. Neck: Normal range of motion, supple, no stridor, no meningeal signs. Cardiovascular: Regular rate and rhythm Lungs & Thorax: Bilateral breath sounds clear to auscultation Abdomen: Soft, no tenderness or obvious masses Skin: Warm, dry, no erythema, no rash. Extremities: Patient is unable to move at the left hip secondary to pain. She has unable to sit upright in the bed. Tenderness on palpation of the upper lumbar spine in the midline. No palpable deformity. Neurologic: Alert and oriented, normal motor function, normal sensory function, no focal deficits noted. Psychologic: Affect normal, judgement normal, mood normal. Current Patient Data: Vital Signs: Vital Signs Date Time Temp Pulse Resp B/P (MAP) Pulse Ox O2 Delivery O2 Flow Rate FiO2 03/19/22 09:20 98.0 136 16 127/86 (100) 95 Room Air EKG: EKG: [] Radiology/Procedures: Radiology/Procedures: [] Impressions: PATIENT: BRAD ZHENG ACCOUNT: [id number] : 1945 LOCATION: ER AGE: 77 SEX: F EXAM STATUS: REG ER ORD. PHYSICIAN: ABDON DICKERSON MD REASON: pain PROCEDURE: CHEST AP ONLY EXAMINATION: Chest radiograph. VIEWS: Single AP view of the chest COMPARISON: None available INDICATION:77 years, Female, pain. FINDINGS: Normal cardiomediastinal silhouette. No focal consolidation. No pleural effusion or pneumothorax. No acute osseous process. IMPRESSION: No acute cardiopulmonary process. Electronically signed by: Lacho Sierra DO (03/19/2022 10:06 AM) [facility] DICTATED AND SIGNED BY: LACHO SIERRA DO DATE: 03/19/22 1004 CC: THOMAS ARELLANO MD; ABDON DICKERSON MD ~ PATIENT: BRAD ZHENG ACCOUNT: [id number] : 1945 LOCATION: ER AGE: 77 SEX: F EXAM STATUS: REG ER ORD. PHYSICIAN: ABDON DICKERSON MD REASON: pain PROCEDURE: HIP LEFT 2V WITH PELVIS Left hip AP lateral and AP pelvis x-rays HISTORY: Left hip pain. FINDINGS: Suture anchors at the pubic bones adjacent of the pubic symphysis. ORIF with long intramedullary nail of the femur with femoral neck screw as well as a distal femoral interlocking screw bridging an old healed traumatic deformity of the trochanteric femur. No bone lysis surrounding the hardware to suggest loosening. No fracture or dislocation of the hip. Heterotopic ossification immediately above the greater trochanter of the femur. The soft tissues are normal. IMPRESSION: No acute osseous injury. ORIF of the left femur. See above. Electronically signed by: Yaakov Gaffney MD (03/19/2022 10:45 AM) [facility] [place] AND SIGNED BY: YAAKOV GAFFNEY MD DATE: 03/19/22 1044 CC: THOMAS ARELLANO MD; ABDON DICKERSON MD ~ PATIENT: BRAD ZHENG ACCOUNT: [id number] : 1945 LOCATION: ER AGE: 77 SEX: F EXAM STATUS: REG ER ORD. PHYSICIAN: ABDON DICKERSON MD REASON: fall, pain,HX OF VERTBROPLASTY 10 YRS AGO PROCEDURE: CT LUMBAR SPINE WO CONTRAST CT lumbar spine without contrast PQRS statement: CT scans at this facility use dose reduction including either automated exposure control, iterative reconstructions, and /or weight based radiation dosing via mA and kV modification when appropriate to reduce radiation dose to as low as reasonably achievable. HISTORY: Fall, back pain, history of vertebroplasty 10 years ago. COMPARISON: CT abdomen September 02, 2020. FINDINGS: Dextroconvex mild lumbar scoliosis. There is a chronic L1 vertebral compression fracture 25% height loss status post bone cement augmentation of the vertebra, there is chronic 2 mm of bony retropulsion, this is stable to prior imaging. Remainder of the lumbar spine demonstrates intact vertebral height and alignment. There is 2 mm anterolisthesis of L3 on L4 associated with disc di sease and asymmetric left facet arthropathy with bony spurring. No acute fracture of lumbar spine. There is acute fracture of the left sacral ala extending inferior outside of the field of view. Lumbar disc bulges and facet spurring contributes to multiple levels of neural foraminal stenoses to a mild to moderate degree, and there may be spinal canal stenoses at L2-L3, L3-L4 and L4-L5 as well. There is mild stranding surrounding the left psoas muscle at the lower lumbar spine and upper pelvis. IMPRESSION: 1. Acute traumatic left sacral ala fractures. 2. No acute osseous injury of the lumbar spine. 3. Chronic treated L1 vertebral compression fracture stable to prior imaging. 4. There is mild retroperitoneal stranding surrounding the lower segment of the left psoas muscle to the upper pelvis at the iliacus muscle. 5. Lumbar scoliosis and disc disease as described above. Electronically signed by: Yaakov Gaffney MD (03/19/2022 10:50 AM) [facility] [place]ATED AND SIGNED BY: YAAKOV GAFFNEY MD DATE: 03/19/22 1045 CC: THOMAS ARELLANO MD; ABDON DICKERSON MD ~ Heart Score: C/O Chest Pain: No Risk Factors: Risk Factors: DM, Current or recent (<one month) smoker, HTN, HLP, family history of CAD, obesity. Risk Scores: Score 0 - 3: 2.5% MACE over next 6 weeks - Discharge Home Score 4 - 6: 20.3% MACE over next 6 weeks - Admit for Clinical Observation Score 7 - 10: 72.7% MACE over next 6 weeks - Early Invasive Strategies Course & Med Decision Making: Course & Med Decision Making Pertinent Labs and Imaging studies reviewed. (See chart for details) [] This is a 77-year-old female who fell in her kitchen yesterday. On work-up she has a acute fracture of the left sacral ala. Nondisplaced. Patient was given some morphine and Zofran but she still has quite a bit of discomfort. She is not able to ambulate. Labs are unrevealing. We will keep her in the hospital for further management potentially PT OT consultation if necessary. I spoke with the hospitalist on-call at [facility] was been kind left to accept her, she is in stable condition at this time. Josue Disclaimer: Josue Disclaimer: This electronic medical record was generated, in whole or in part, using a voice recognition dictation system. Departure Departure: Impression: Primary Impression: Sacral fracture, closed Disposition: ADMITTED INPATIENT Condition: STABLE Referrals: THOMAS ARELLANO MD (PCP) ABDON DICKERSON MD Mar 19, 2022 09:28
--- NOTE | 2022-03-19 10:09 | RAD ---
EXAMINATION: Chest radiograph. VIEWS: Single AP view of the chest COMPARISON: None available INDICATION:77 years, Female, pain. FINDINGS: Normal cardiomediastinal silhouette. No focal consolidation. No pleural effusion or pneumothorax. No acute osseous process. IMPRESSION: No acute cardiopulmonary process. Electronically signed by: Gelacio Sierra DO (03/19/2022 10:06 AM) [facility]
[2022-03-19] MEDS: IV NORMAL SALINE 1,000ML 1,000 ML IV ONE (10:11)
[2022-03-19] MEDS: ONDANSETRON PF 4 MG/2 ML VIAL. IVP ONE (10:12)
[2022-03-19] MEDS: MORPHINE SULFATE 2 MG/ML DISP.SYRIN. IV ONE ×3 (10:14→14:30)
[2022-03-19 10:25] LABS: BASO # 0.2 x10^3/uL (0.0-0.2); BASO % 1 % (0-3); EOS % 0 % (0-3); HEMATOCRIT 40.4 % (36.0-47.0); HEMOGLOBIN 13.2 g/dL (12.0-15.5); LYMPH # 0.7 x10^3/uL (1.0-4.8); LYMPH % 4 % (24-48); MEAN CORPUSCULAR HEMOGLOBIN 30 pg (25-35); MEAN CORPUSCULAR HGB CONC 33 g/dL (31-37); MEAN CORPUSCULAR VOLUME 91 fL (79-100); MONO # 0.5 x10^3/uL (0.0-1.1); MONO % 3 % (0-9); NEUT # 13.7 x10^3uL (1.8-7.7); NEUT % 91 % (31-73); PLATELET COUNT 225 x10^3/uL (140-400); RED BLOOD COUNT 4.43 x10^6/uL (3.50-5.40); RED CELL DISTRIBUTION WIDTH 14.4 % (11.5-14.5); WHITE BLOOD COUNT 15.1 x10^3/uL (4.0-11.0)
[2022-03-19 10:33] LABS: CALCIUM 8.5 mg/dL (8.5-10.1); CREATININE 0.6 mg/dL (0.6-1.0); GFR 96.7; POTASSIUM 3.8 mmol/L (3.5-5.1)
[2022-03-19 10:38] LABS: ALBUMIN 3.6 g/dL (3.4-5.0); MAGNESIUM 2.1 mg/dL (1.8-2.4); TOTAL BILIRUBIN 1.5 mg/dL (0.2-1.0); TOTAL PROTEIN 7.2 g/dL (6.4-8.2)
--- NOTE | 2022-03-19 10:48 | RAD ---
Left hip AP lateral and AP pelvis x-rays HISTORY: Left hip pain. FINDINGS: Suture anchors at the pubic bones adjacent of the pubic symphysis. ORIF with long intramedu llary nail of the femur with femoral neck screw as well as a distal femoral interlocking screw bridgi ng an old healed traumatic deformity of the trochanteric femur. No bone lysis surrounding the hardwar e to suggest loosening. No fracture or dislocation of the hip. Heterotopic ossification immediately a renan the greater trochanter of the femur. The soft tissues are normal. IMPRESSION: No acute osseous injury. ORIF of the left femur. See above. Electronically signed by: Vadim Gaffney MD (03/19/2022 10:45 AM) [facility]
--- NOTE | 2022-03-19 10:52 | RAD ---
CT lumbar spine without contrast PQRS statement: CT scans at this facility use dose reduction including either automated exposure cont rol, iterative reconstructions, and /or weight based radiation dosing via mA and kV modification when appropriate to reduce radiation dose to as low as reasonably achievable. HISTORY: Fall, back pain, history of vertebroplasty 10 years ago. COMPARISON: CT abdomen September 02, 2020. FINDINGS: Dextroconvex mild lumbar scoliosis. There is a chronic L1 vertebral compression fracture 25 % height loss status post bone cement augmentation of the vertebra, there is chronic 2 mm of bony ret ropulsion, this is stable to prior imaging. Remainder of the lumbar spine demonstrates intact vertebr al height and alignment. There is 2 mm anterolisthesis of L3 on L4 associated with disc disease and a symmetric left facet arthropathy with bony spurring. No acute fracture of lumbar spine. There is acut e fracture of the left sacral ala extending inferior outside of the field of view. Lumbar disc bulges and facet spurring contributes to multiple levels of neural foraminal stenoses to a mild to moderate degree, and there may be spinal canal stenoses at L2-L3, L3-L4 and L4-L5 as well. There is mild stra nding surrounding the left psoas muscle at the lower lumbar spine and upper pelvis. IMPRESSION: 1. Acute traumatic left sacral ala fractures. 2. No acute osseous injury of the lumbar spine. 3. Chronic treated L1 vertebral compression fracture stable to prior imaging. 4. There is mild retroperitoneal stranding surrounding the lower segment of the left psoas muscle to the upper pelvis at the iliacus muscle. 5. Lumbar scoliosis and disc disease as described above. Electronically signed by: Vadim Gaffney MD (03/19/2022 10:50 AM) [facility]
[2022-03-19 12:43] LABS: INFLUENZA A PATIENT NEGATIVE (NEGATIVE); INFLUENZA B PATIENT NEGATIVE (NEGATIVE)
[2022-03-19 13:00] VITALS: BP 120/67
[2022-03-19 13:59] LABS: % BANDS 3 % (0-9); % LYMPHS 3 % (24-48); % MONOS 1 % (0-10); % SEGS 93 % (35-66); PLT ESTIMATE ADEQUATE (ADEQUATE)
[2022-03-19 14:04] LABS: BACTERIA,URINE MANY /HPF (0-FEW); CLARITY,URINE HAZY; COLOR,URINE YELLOW; GLUCOSE,URINE NEG (NEG); NITRITE,URINE POS (NEG); SQUAMOUS EPITHELIAL CELL,UR FEW /LPF; UROBILINOGEN,URINE 0.2 mg/dL (0.2 mg/dL)
--- NOTE | 2022-03-21 19:03 | EKG ---
[address] [address] Test Date: 2022-03-19 Test Time: 10:09:22 Pat Name: BRAD ZHENG Department: Room: Gender: F Rug Dry Room Attendant: ROSANNA : 1945 Requested By: ABDON DICKERSON Order Number: [id number] Reading MD: Measurements Intervals [place] Rate: 130 P: PA: QRS: -31 QRSD: 100 T: 42 QT: 340 QTc: 500 Interpretive Statements IRREGULAR RHYTHM, NO P-WAVE FOUND ABNORMAL LEFT AXIS DEVIATION LOW LIMB LEAD VOLTAGE ABNORMAL ECG RI6.01 No previous ECG available for comparison
== END 2022-03-19 15:27 | disposition short-term general hospital (02) ==
LOC: ER 08:58
DX: S32.19XA Other fracture of sacrum, initial encounter for closed fracture (principal); G43.909 Migraine, unspecified, not intractable, without status migrainosus; Z20.822 Contact with and (suspected) exposure to COVID-19; Z90.710 Acquired absence of both cervix and uterus; W18.39XA Other fall on same level, initial encounter; Y93.89 Activity, other specified; Y92.090 Kitchen in other non-institutional residence as the place of occurrence of the external cause; Y99.8 Other external cause status
CPT/HCPCS: 36415; 71045; 72131; 73502; 80053; 81001; 83735; 84484; 85007; 85025; 87428; 93005; 96361; 96374; 96375; 96376; 99285; J2270; J2405; J7030